=== PATIENT | female | born 1965 | race Caucasian/White ===

== ENCOUNTER → 2023-05-05 14:58 | Outpatient (REF) | payer OTHER, SELFPAY | LOC: WDC 14:58 | PROVIDERS: ATTENDING PHYSICIAN Family Medicine | DX: R92.2 Inconclusive mammogram (principal) | CPT/HCPCS: 76641 ==

== ENCOUNTER 2023-08-02 22:34 | Emergency (ER) | payer OTHER, SELFPAY ==
[2023-08-02 22:36] VITALS: BP 161/94; BMI 22.9
--- NOTE | 2023-08-02 23:36 | ED.GENMED ---
History of Present Illness
General
Chief Complaint: Abdominal Pain
Source: patient
Exam Limitations: none
Time Seen by Provider: 08/02/23 23:15
Travel History
Have you had any contact with someone who has COVID-19?: No
Do you have any symptoms of coronavirus? Fever > 100 degrees, chills, cough, shortness of breath, sore throat, loss of taste or smell, muscle aches, or headache?: No
History of Present Illness
History of Present Illness:
This is a 57 year old female that come in with c/o abd pain. State that for the past 2 days she has had pain under the left rib area that goes around to the back. States that the pain has been constant. State that she occasionally gets this shooting
pain that goes all across the abd. States that her skin in sensitive to the touch. Denies any fever, chills, chest pain, SOB, nausea, vomiting, diarrhea, headache, dizziness, urinary burning.
Past History
Past History
ED Past Medical History: GERD
ED Past Surgical History: Other (Left eye surgery)
Social History
Tobacco: Non-smoker
Alcohol: Occasional
Personal:
Living: with family
Review of Systems
Review of Systems
All Other Systems: ROS reviewed and negative except as documented in HPI and ROS
Constitutional: Reports no symptoms; Denies fever or chills
EENT: Reports no symptoms
Respiratory: Reports no symptoms; Denies cough or trouble breathing
Cardiac: Denies chest pain
ABD/GI: Reports abdominal pain; Denies nausea, vomiting or diarrhea
: Reports no symptoms; Denies dysuria, frequency or urgency
Musculoskeletal: Reports no symptoms
Skin: Reports no symptoms
Neurological: Reports no symptoms; Denies dizzy or headache
Psychiatric: Reports no symptoms
Phy Exam
General Physical Exam
General Presentation: no apparent distress
General age: appears stated age
General Skin: warm and dry
General Habitus: normal
General Mental: alert
General Hydration: dry mucous membranes
ENT Exam
ENT Exam: TM's normal, pharynx normal and neck supple
Cardiovascular Exam
Cardiovascular Exam: regular rate/rhythm, no edema, no murmur and normal peripheral pulses
Pulmonary Exam
Pulmonary Exam: lungs clear, no respiratory distress, no rales, chest non tender, no crackles, no rhonchi, no wheezing and no cough
Gastrointestinal Exam
Gastrointestinal Exam: normal bowel sounds, soft, no organomegaly, no pulsatile mass, non distended and tender (Mid abd tenderness with palpation)
Musculoskeletal Exam
Musculoskeletal Exam: full ROM and no edema
Skin Exam
Skin Exam: normal color, warm/dry, no rash and no petechia
Psychiatric Exam
Psychiatric Exam: normal mood/affect
Course
Orders/Labs/Results
Orders:
Orders
08/02/23 23:35
0.9% Sodium Chloride 1000 ml [Nss] 1,000 ml IV BOLUS
Iohexol [Omnipaque] See Protocol PO NOW STA
Ketorolac [Toradol] 30 mg IV NOW STA
08/02/23 23:58
Complete Blood Count/With Diff Urgent
08/03/23 00:52
Comprehensive Metabolic Panel Urgent
08/03/23 02:00
CT Abd/pel W Iv And Oral Contr Urgent
Reason For Exam: MId abd pain
Abnormal Lab Results
08/02/23 08/03/23
23:58 00:52
RBC 3.97 L 10^6/uL
(4.20-5.40)
Hct 34.9 L %
(37.0-47.0)
Absolute Monos (auto) 0.7 H 10^3/uL
(0.1-0.6)
Neutrophils % 40.7 L %
(42.2-75.2)
Monocytes % 11.2 H %
(1.7-9.3)
Glucose 102 H mg/dl
(70-99)
08/02/23 23:58
08/03/23 00:52
Glucose nonfasting.
Vital Signs
Initial and Last Documented VS:
Initial Vital Signs
Temp Pulse Resp BP Pulse Ox
97.7 F 55 18 161/94 100
08/02/23 22:36 08/02/23 22:36 08/02/23 22:36 08/02/23 22:36 08/02/23 22:36
Last Documented Vital Signs
Temp Pulse Resp BP Pulse Ox
97.7 F 59 16 120/71 99
08/02/23 22:36 08/03/23 02:13 08/03/23 02:13 08/03/23 02:13 08/03/23 02:13
MDM/Problems Addressed
Differential Diagnosis Includes:
abd hernia Diverticulitis, Renal calculus, Shingles
MDM/Problems Addressed:
This is a 57 year old female that comes in with c/o abd pain. States that this started 2 days ago and has been constant. States that the pain goes around to the back to the spine and that her skin is sensitive.
Will get labs and CT scan.
Back into see patient. Explained that the CT only shows Moderate amount of stool in the transverse colon. Patient state that she has always had problems with constipation. Explained to patient the fact that she said her skin was sensitive to the
touch, encouraged patient to watch for any rash as shingles can start with pain and sensitivity but does not always have the rash visible. Patient to follow up with the family doctor. Will give patient a bottle of Magnesium Citrate. Patient to
return with any concerns.
Chronic conditions affecting care:
NA
Acute Exacerbation and/or Progression of Chronic Illness:
NA
*Radiology
Radiology exam reviewed: radiology read reviewed (CT [place]- No bowel or renal obstruction. Moderate amount of stool in the transverse colon. No free air or free fluid. Normal appendix. Gallbladder, pancreas, and spleen are unremarkable. )
*Pulse Oximetry
Patient hypoxic: no
*EKG
Interpreted by ED Provider?: NA
Rate: EKG- N/A
*Transfer Engineer Interpretation
Rate: Transfer Engineer- N/A
*Critical Care Note
Total Time (30-74mins, 75-104mins- exclusive of procedures): Not Applicable
ED Attending Note
-
Portions of this chart may have been created with voice recognition software.� Occasional wrong word or��sound alike� substitutions may have occurred due to the inherent limitations of voice recognition software.
Discharge Plan
Departure
Patient Disposition: Home (Routine Discharge)
Date of Disposition: 08/03/23
Time of Disposition: 02:56
Patient with high blood pressure during this ER visit?: No
Condition: Good
Covid-19: Not Applicable
Discharge Problem:
Constipation
Instructions: Constipation, Adult (DC)
Referrals:
Alexandra Gresham MD [Family Provider] - Call in 1-3 days for appt
Activity Restrictions/Additional Instructions:
As discussed, your blood work is normal. Your CT shows that you have moderate amount of stool in the transverse colon. You have been given a bottle of Magnesium Citrate. Please drink the entire bottle at one time. This will help push the stool from
the top down. Please increase your water intake to 8-8oz glasses daily. Please continue to watch for any rash in the left sided as you can have sensitive of the skin and discomfort before a shingles rash develops. Follow up with the family doctor
for recheck. IF YOU HAVE INCREASED OR CHANGING PAIN, FEVER, OR YOU HAVE ANY OTHER CONCERNS PLEASE RETURN TO THE EMERGENCY ROOM
Interventions
Interventions:
*Risk Screen - Suicide Last Done: 08/02/23 22:36
*General Assessment Last Done: 08/03/23 02:28
*Neglect/Abuse Screening Last Done: 08/02/23 22:36
ED- Fall Risk Assessment Last Done: 08/02/23 22:36
*ED COVID-19 Vaccine History Last Done: 08/03/23 02:28
[facility] Assessment Last Done: 08/02/23 23:50
Discharge Date and Time
Print Language: GREEK
[2023-08-02] MEDS: OMNIPAQUE 50 ML PO (23:58)
[2023-08-02] MEDS: TORADOL 30 MG IV (23:58)
[2023-08-03 00:05] VITALS: BP 137/74
[2023-08-03] MEDS: NSS 1000 IV (00:06)
[2023-08-03 00:08] LABS: % Basophils 0.8 % (0-2); % Eosinophils 2.3 % (0-6); % Immature Granulocytes 0.3 % (0-0.5); % Lymphocytes 44.7 % (20.5-51.1); % Monocytes 11.2 % (1.7-9.3); % Neutrophils 40.7 % (42.2-75.2); Absolute Basophils 0.1 10^3/uL (0-0.2); Absolute Eosinophils 0.2 10^3/uL (0-0.7); Absolute Lymphocytes 2.9 10^3/uL (1.2-3.4); Absolute Monocytes 0.7 10^3/uL (0.1-0.6); Absolute Neutrophils 2.7 10^3/uL (1.4-6.5); Hematocrit 34.9 % (37.0-47.0); Hemoglobin 12.2 g/dL (12.0-16.0); Mean Corpuscular Hgb 30.7 pg (27.0-31.0); Mean Corpuscular Volume 87.9 fL (81.0-99.0); Mean Platelet Volume 9.8 fL (7.4-10.4); Nucleated Red Blood Cells % 0 %; Platelet Count 260 10^3/uL (130-400); Red Blood Cell Count 3.97 10^6/uL (4.20-5.40); Red Cell Dist. Width 12.1 % (11.5-14.5); White Blood Cell Count 6.6 10^3/uL (4.8-10.8)
[2023-08-03 01:18] LABS: ALT (SGPT) 25 U/L (0-35); AST (SGOT) 33 U/L (14-36); Albumin 4.7 g/dl (3.5-5.0); Alkaline Phosphatase 95 U/L (38-126); Blood Urea Nitrogen 16 mg/dl (7-17); Calcium 9.4 mg/dl (8.4-10.2); Carbon Dioxide 26 mmol/L (22-30); Chloride 106 mmol/L (98-107); Estimated Creatinine Clearance 82 ml/min; Glucose 102 mg/dl (70-99); Potassium 4.2 mmol/L (3.5-5.1); Sodium 139 mmol/L (135-145); Total Bilirubin 0.4 mg/dl (0.2-1.3); Total Protein 7.4 g/dl (6.3-8.2); eGFR > 60.00
[2023-08-03 02:13] VITALS: BP 120/71
[2023-08-03] MEDS: CITROMA 300 ML PO (03:04)
[2023-08-03 03:08] VITALS: BP 114/72
== END 2023-08-03 03:28 | disposition home or self-care (01) ==
LOC: EMR 22:34
PROVIDERS: Clinical Nurse Specialist Family Health; EMERGENCY PHYSICIAN Emergency Medicine; FAMILY PHYSICIAN Family Medicine
DX: K59.00 Constipation, unspecified (principal); R10.12 Left upper quadrant pain; R20.8 Other disturbances of skin sensation; K21.9 Gastro-esophageal reflux disease without esophagitis; Z88.8 Allergy status to other drugs, medicaments and biological substances
CPT/HCPCS: 99285; 96374; 96361; 74177; 80053; 85025; Q9967

== ENCOUNTER → 2023-12-26 13:32 | Outpatient (REF) | payer OTHER, SELFPAY | LOC: WDC 13:32 | PROVIDERS: ATTENDING PHYSICIAN Nurse Practitioner Family | DX: Z78.0 Asymptomatic menopausal state (principal); Z12.31 Encounter for screening mammogram for malignant neoplasm of breast | CPT/HCPCS: 77063; 77067; 77080 ==

== ENCOUNTER → 2025-01-16 15:55 | Outpatient (REF) | payer OTHER, SELFPAY | LOC: WDC 15:55 | PROVIDERS: ATTENDING PHYSICIAN Family Medicine | DX: Z12.39 Encounter for other screening for malignant neoplasm of breast (principal); Z12.31 Encounter for screening mammogram for malignant neoplasm of breast | CPT/HCPCS: 77063; 77067 ==